=== PATIENT | female | born 1940 | race Caucasian/White ===

== ENCOUNTER 2019-02-15 07:36 | Emergency (ER) | payer MEDICARE, BC ==
[2019-02-15] MEDS ORDERED: Sulfamethoxazole/Trimethoprim 800-160 MG Tab ONE (08:55)
[2019-02-15] MEDS ORDERED: Phenazopyridine 100 MG Tab ONE (08:55)
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
== END 2019-02-15 09:22 | disposition home or self-care (01) ==
LOC: LB.ED 07:36
DX: N39.0 Urinary tract infection, site not specified (principal)
CPT/HCPCS: 81001; 99283; A9270